=== PATIENT | female | born 1985 | race Caucasian/White ===

== ENCOUNTER 2017-05-25 11:24 | Emergency (ER) | payer OTHER ==
[~2017-05-25] VITALS: Ht 170.2 cm; Wt 80.0 kg
[~2017-05-25 11:24] MED LIST: LOES1TAB2 PO
[2017-05-25 11:25] VITALS: BP 124/62; PULSE 57; RESP 16; TEMP 99.4; O2SAT 100
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
[2017-05-25] MEDS ORDERED: ROBA500T PO (11:58)
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
== END 2017-05-25 12:18 | disposition home or self-care (01) ==
LOC: NEPD 11:24
DX: M62.830 Muscle spasm of back (principal); G44.209 Tension-type headache, unspecified, not intractable; M25.551 Pain in right hip; V89.2XXA Person injured in unspecified motor-vehicle accident, traffic, initial encounter
CPT/HCPCS: 99283